=== PATIENT | male | born 1980 | race Caucasian/White ===

== ENCOUNTER 2020-10-04 16:17 | Emergency (ER) | payer SELFPAY ==
[2020-10-04 16:19] VITALS: BP 124/89; PULSE 82; RESP 18; TEMP 36.6; O2SAT 99; BMI 27.2
--- NOTE | 2020-10-04 17:04 | W.ED.ALCOHOL ---
HPI - Alcohol General: Chief Complaint: Alcohol Stated Complaint: ETOH Time Seen by Provider: 10/04/20 16:33 History of Present Illness: HPI narrative: 40 yo male present to the ER ambulaotry via EMS. he was found sleeping in a ditch. Admits to being intoxicated. Patient states he wants to stop drinking at some point in future. He denies any suicidal or homicidal ideation. He is not anxious to stop drinking at this time. He denies having any injuries and states he really does not want to be here. MD complaint: alcohol intoxication Physical Exam Const: COMMON NORMALS: no acute distress GENERAL APPEARANCE: cooperative and comfortable ORIENTATION/CONSCIOUSNESS: Yes awake, Yes oriented to person, Yes oriented to place and Yes oriented to time HENMT: COMMON NORMALS: normocephalic, atraumatic, hearing grossly normal bilaterally, external ears normal, EAC's normal, TM's normal bilaterally, Normal nasal mucous membranes and turbinates present, moist oral mucous membranes and oropharynx normal HEAD & SCALP: normocephalic and atraumatic NOSE: Normal nasal mucous membranes and turbinates present EXTERNAL EAR: Yes external ears normal EXTERNAL AUDITORY CANAL: EAC's normal TYMPANIC MEMBRANE: TM's normal bilaterally Neck/C-Spine: COMMON NORMALS: no JVD Resp: COMMON NORMALS: normal respiratory effort, No retractions, No use of accessory muscles and clear to auscultation bilaterally AUSCULTATION: clear to auscultation bilaterally Cardio: COMMON NORMALS: no JVD, regular rate, regular rhythm and No murmurs present (Cardio) RATE: regular rate RHYTHM: regular rhythm Extremity: COMMON NORMALS: normal to inspection, capillary refill normal, no clubbing, cyanosis or edema, no calf tenderness and no pedal edema Neuro: SENSORIUM/ORIENTATION: Yes oriented to person, Yes oriented to place and Yes oriented to time Course Vital Signs: Vital signs: Vital Signs Temperature 97.9 F 10/04/20 16:19 Pulse Rate 86 10/04/20 17:11 Respiratory Rate 16 10/04/20 17:11 Blood Pressure 107/70 10/04/20 17:11 Pulse Oximetry 97 10/04/20 17:11 MDM - Alcohol MDM Narrative: Medical decision making narrative: Ultimately patient declined exam and evaluation states he feels fine and would prefer to just leave. We will go ahead and discharge him encouraged alcohol abstinence and will referral to [facility]. Discharge Plan Discharge Patient Disposition: Home Clinical Impression: Alcoholic intoxication Condition: Stable Discharge Orders: Discharge ED (Routine); Ordered 10/04/20 Ordered By: Aden Owens Discharge Diet: Usual diet Discharge Activity: Increase activity as tolerated Activity Restrictions/Additional Instructions: REcommend abstinence form ETOH. Woudl reccomend you contact [facility] . Coding Level of Care Code ED Dress Marker for Kimberly Hopper
[2020-10-04 17:11] VITALS: BP 107/70; PULSE 86; RESP 16; O2SAT 97
== END 2020-10-04 17:12 | disposition home or self-care (01) ==
LOC: ER 17:12
PROVIDERS: Emergency Provider Family Medicine
DX: F10.129 Alcohol abuse with intoxication, unspecified (principal)
CPT/HCPCS: 12345; 99282

== ENCOUNTER 2020-10-04 21:00 | Inpatient (IN) | payer SELFPAY ==
[2020-10-04 21:05] VITALS: BP 138/94; PULSE 96; RESP 18; TEMP 36.6; O2SAT 97; BMI 27.9
[2020-10-04 21:38] LABS: Basophils # 0.1 10^3/uL (0.0-0.1); Basophils % 1.6 %; Eosinophils # 0.1 10^3/uL (0.0-0.8); Eosinophils % 1.4 %; Hematocrit 41.6 % (42.0-52.0); Hemoglobin 14.1 g/dL (11.7-16.6); Lymphocytes # 3.7 10^3/uL (0.8-4.8); Lymphocytes % 52.3 %; Mean Corpuscular HGB Conc 33.9 g/dL (30.0-36.0); Mean Corpuscular Hemoglobin 34.7 pg (28.0-34.0); Mean Corpuscular Volume 102.5 fL (80-94); Monocytes # 0.4 10^3/uL (0.2-0.9); Monocytes % 6.1 %; Neutrophils # 2.67 10^3/uL (1.8-7.7); Neutrophils % 38.2 %; Nucleated Red Blood Cells % 0 %; Platelet Count 251 10^3/cmm (130-400); Red Blood Count 4.06 10^6/uL (4.1-5.3); Red Cell Distribution Width 13.7 % (12.1-15.1)
[2020-10-04 21:55] LABS: Alanine Aminotransferase 55 U/L (0-41); Albumin Level 4.2 g/dL (3.5-5.2); Alcohol Level 277 mg/dL (0-10); Alkaline Phosphatase 115 IU/L (40-130); Anion Gap 16.7 (5-19); Aspartate Amino Transferase 88 U/L (0-40); Blood Urea Nitrogen 9 mg/dL (6-20); Calcium 8.8 mg/dL (8.5-10.5); Carbon Dioxide 26 mmol/L (22-29); Chloride 106 mmol/L (98-107); Globulin 2.6 g/dL (1.3-4.6); Glomerular Filtration Rate 186.1 mL/min (90-130); Glucose 157 mg/dL (65-115); Osmolality Calculated 302 mOsm/kg (285-295); Potassium 3.7 mmol/L (3.5-5.1); Sodium 145 mmol/L (136-145); Total Bilirubin 0.2 mg/dL (0.15-1.2); Total Protein 6.8 g/dL (6.6-8.7)
[2020-10-04 22:00] LABS: Salicylate < 0.3 mg/dL (3-10)
[2020-10-04 22:01] LABS: Acetaminophen < 5.0 ug/mL (10-30)
[2020-10-04 22:01] LABS: Add Urine Microscopic? NO
[2020-10-04 22:06] LABS: Bilirubin Urine Neg (Negative); Blood Urine Neg (Negative); Glucose Urine UA Norm (Normal); Ketones Urine Negative (Negative); Leukocyte Esterase Urine Negative (Negative); Nitrate Urine Negative (Negative); Protein Urine Neg (Negative); Urine Appearance Clear (CLEAR); Urine Color Yellow (Yellow); Urobilinogen Urine Norm (Negative); pH Urine 5 (5-7)
[2020-10-04 22:15] LABS: Amphetamines Screen Urine Negative (Negative); Barbiturates Screen Urine Negative (Negative); Benzodiazepines Screen Urine Negative (Negative); Cocaine Screen Urine Negative (Negative); Opiate Screen Urine Negative (Negative); PCP Screen Urine Negative (Negative); THC Screen Urine Negative (Negative)
[2020-10-04 22:31] VITALS: BP 139/95; PULSE 89; RESP 16; TEMP 37; O2SAT 98
--- NOTE | 2020-10-04 22:33 | W.ED.PSYCH ---
HPI - Psych General: Chief Complaint: Psychiatric Symptoms Stated Complaint: SI Time Seen by Provider: 10/04/20 21:01 Source: patient and EMS Mode of arrival: EMS Limitations: no limitations History of Present Illness: HPI Narrative: 40-year-old male who presents to the emergency department via EMS with complaint of suicidal ideation. He has apparently some social issues including no electricity or heat or water at home. He tried to get into the home long-term today but they did not do admissions on the weekend apparently. He is also an alcoholic who drinks vodka every day, he claims that he drinks at least a pint every day. Because he has nowhere to sleep and he was not able to get into a homeless long-term, a dog got to him and he felt overwhelmed. He therefore thought he may be better if he killed himself, Wants to hang himself or lay in a beach and . MD complaint: suicidal ideation and feels depressed Onset (ago): hour(s) Duration: constant Relieving factors: none Exacerbating factors: alcohol Context: recent alcohol abuse Associated psychiatric symptoms: depression and suicidal ideation Associated symptoms: Reports depression and suicidal ideation; Deny auditory hallucinations, visual hallucinations, delusions, homicidal ideation or racing thoughts Treatments prior to arrival: none If self harm: admits thoughts of self harm and has plan (hang himself) Review of Systems General: Reports: 10 or more systems reviewed and unremarkable except in HPI and below Const: Denies: fever(s), chills or body aches Eyes: Denies: change in vision or blurry vision ENMT: Denies: throat pain, enlarged tonsils, odynophagia, hoarseness, mouth pain or swelling of lips/tongue Card: Denies: palpitations, irregular heart rhythm, edema or swelling of feet/ankles Resp: Denies: dyspnea, productive cough or non-productive cough GI: Denies: abdominal pain, nausea or vomiting : Denies: flank pain, dysuria, urinary frequency, urinary urgency or urinary hesitancy Musc: Denies: neck pain, back pain or extremity swelling Skin/Breast: Denies: rash, pruritus or erythema Neuro: Denies: headache(s), numbness in extremities or weakness in extremities Psych: Reports: depression and suicidal ideation; Denies: visual hallucinations, auditory hallucinations or homicidal ideation Endo: Denies: polyuria, polydipsia or tired all the time Physical Exam Const: COMMON NORMALS: no acute distress, average body habitus, patient oriented x3, no limitations, healthy appearing, alert and well nourished HENMT: COMMON NORMALS: normocephalic, atraumatic and moist oral mucous membranes HEAD & SCALP: normocephalic and atraumatic Neck/C-Spine: COMMON NORMALS: no meningeal signs and no JVD Chest: COMMONS NORMALS: normal inspection of the chest and normal palpation of entire chest wall Resp: COMMON NORMALS: normal respiratory effort, No retractions, No use of accessory muscles, clear to auscultation bilaterally and percussion normal AUSCULTATION: clear to auscultation bilaterally PERCUSSION: percussion normal Cardio: COMMON NORMALS: no JVD, regular rate, regular rhythm, S1 normal heart sound present, S2 normal heart sound present, No gallops present (Cardio), No clicks present (Cardio), No murmurs present (Cardio), No rub (Cardio) and Peripheral pulses 2+ throughout RATE: regular rate RHYTHM: regular rhythm HEART SOUNDS: S1 normal heart sound present and S2 normal heart sound present PERIPHERAL PULSES: Peripheral pulses 2+ throughout GI: COMMON NORMALS: Normal to inspection, nondistended, normoactive bowel sounds present, Soft to palpation, non-tender, No hepatosplenomegaly present, no masses and no bruits PALPATION: Yes Soft to palpation and Yes No hepatosplenomegaly present Extremity: COMMON NORMALS: normal to inspection, full ROM, capillary refill normal, no calf tenderness and no pedal edema Neuro: COMMON NORMALS: patient oriented x3 SENSORIUM/ORIENTATION: Yes alert MENINGEAL SIGNS: Yes no meningeal signs Psych: THOUGHT CONTENT: No delusions Skin: COMMON NORMALS: no rashes or lesions noted, no wounds, turgor normal, no jaundice, no petechiae and no mottling GENERAL SKIN EXAM: no rashes or lesions noted and turgor normal MDM - Psych MDM Narrative: Medical decision making narrative: 40-year-old male with significant social issues who presents to the emergency department with suicidal ideation with a plan. He has been medically cleared and is admitted to the neuropsychiatric unit for further evaluation and management. He is also suffering from alcoholism. Medical Records: Attestation: I reviewed the patient's medical records. Lab Data: Attestation: I reviewed the patient's lab results. Labs: Lab Results 10/04/20 10/04/20 10/04/20 Range/Units 21:32 21:32 21:33 WBC 7.0 (4.0-10.0) 10^3/ uL RBC 4.06 L (4.1-5.3) 10^6/u L Hgb 14.1 (11.7-16.6) g/dL Hct 41.6 L (42.0-52.0) % MCV 102.5 H (80-94) fL MCH 34.7 H (28.0-34.0) pg MCHC 33.9 (30.0-36.0) g/dL RDW 13.7 (12.1-15.1) % Plt Count 251 (130-400) 10^3/c mm MPV 9.0 (7.4-10.4) fL Neut % (Auto) 38.2 % Lymph % (Auto) 52.3 % [place] % (Auto) 6.1 % Eos % (Auto) 1.4 % Baso % (Auto) 1.6 % Neut # (Auto) 2.67 (1.8-7.7) 10^3/u L Lymph # (Auto) 3.7 (0.8-4.8) 10^3/u L [place] # (Auto) 0.4 (0.2-0.9) 10^3/u L Eos # (Auto) 0.1 (0.0-0.8) 10^3/u L Baso # (Auto) 0.1 (0.0-0.1) 10^3/u L Nucleated RBC % (a uto) 0 % Nucleated RBCs # 0.0 /100WBC Sodium (136-145) mmol/L Potassium (3.5-5.1) mmol/L Chloride (98-107) mmol/L Carbon Dioxide (22-29) mmol/L Anion Gap (5-19) BUN (6-20) mg/dL Creatinine (0.7-1.2) mg/dL GFR Calculation (90-130) mL/min Glucose (65-115) mg/dL Calculated Osmolal ity (285-295) mOsm/k g Calcium (8.5-10.5) mg/dL Total Bilirubin (0.15-1.2) mg/dL AST (0-40) U/L ALT (0-41) U/L Alkaline Phosphata se (40-130) IU/L Total Protein (6.6-8.7) g/dL Albumin (3.5-5.2) g/dL Globulin (1.3-4.6) g/dL Urine Color Yellow (Yellow) Urine Appearance Clear (CLEAR) Urine pH 5 (5-7) Ur Specific Gravit y 1.020 (1.005-1.030) Urine Protein Neg (Negative) Urine Glucose (UA) Norm (Normal) Urine Ketones Negative (Negative) Urine Blood Neg (Negative) Urine Nitrate Negative (Negative) Urine Bilirubin Neg (Negative) Urine Urobilinogen Norm (Negative) mg/dL Ur Leukocyte Dior ase Negative (Negative) Salicylates (3-10) mg/dL Urine Opiates Scre en Negative (Negative) ng/mL Acetaminophen (10-30) ug/mL Ur Barbiturates Sc reen Negative (Negative) ng/mL Ur Phencyclidine S crn Negative (Negative) ng/mL Ur Amphetamines Sc reen Negative (Negative) ng/mL U Benzodiazepines Scrn Negative (Negative) ng/mL Urine Cocaine Scre en Negative (Negative) ng/mL U Marijuana (THC) Screen Negative (Negative) ng/mL Ethyl Alcohol (0-10) mg/dL 10/04/20 Range/Units 21:33 WBC (4.0-10.0) 10^3/ uL RBC (4.1-5.3) 10^6/u L Hgb (11.7-16.6) g/dL Hct (42.0-52.0) % MCV (80-94) fL MCH (28.0-34.0) pg MCHC (30.0-36.0) g/dL RDW (12.1-15.1) % Plt Count (130-400) 10^3/c mm MPV (7.4-10.4) fL Neut % (Auto) % Lymph % (Auto) % [place] % (Auto) % Eos % (Auto) % Baso % (Auto) % Neut # (Auto) (1.8-7.7) 10^3/u L Lymph # (Auto) (0.8-4.8) 10^3/u L [place] # (Auto) (0.2-0.9) 10^3/u L Eos # (Auto) (0.0-0.8) 10^3/u L Baso # (Auto) (0.0-0.1) 10^3/u L Nucleated RBC % (a uto) % Nucleated RBCs # /100WBC Sodium 145 (136-145) mmol/L Potassium 3.7 (3.5-5.1) mmol/L Chloride 106 (98-107) mmol/L Carbon Dioxide 26 (22-29) mmol/L Anion Gap 16.7 (5-19) BUN 9 (6-20) mg/dL Creatinine 0.5 L (0.7-1.2) mg/dL GFR Calculation 186.1 H (90-130) mL/min Glucose 157 H (65-115) mg/dL Calculated Osmolal ity 302 H (285-295) mOsm/k g Calcium 8.8 (8.5-10.5) mg/dL Total Bilirubin 0.2 (0.15-1.2) mg/dL AST 88 H (0-40) U/L ALT 55 H (0-41) U/L Alkaline Phosphata se 115 (40-130) IU/L Total Protein 6.8 (6.6-8.7) g/dL Albumin 4.2 (3.5-5.2) g/dL Globulin 2.6 (1.3-4.6) g/dL Urine Color (Yellow) Urine Appearance (CLEAR) Urine pH (5-7) Ur Specific Gravit y (1.005-1.030) Urine Protein (Negative) Urine Glucose (UA) (Normal) Urine Ketones (Negative) Urine Blood (Negative) Urine Nitrate (Negative) Urine Bilirubin (Negative) Urine Urobilinogen (Negative) mg/dL Ur Leukocyte Dior ase (Negative) Salicylates < 0.3 L (3-10) mg/dL Urine Opiates Scre en (Negative) ng/mL Acetaminophen < 5.0 L (10-30) ug/mL Ur Barbiturates Sc reen (Negative) ng/mL Ur Phencyclidine S crn (Negative) ng/mL Ur Amphetamines Sc reen (Negative) ng/mL U Benzodiazepines Scrn (Negative) ng/mL Urine Cocaine Scre en (Negative) ng/mL U Marijuana (THC) Screen (Negative) ng/mL Ethyl Alcohol 277 H (0-10) mg/dL Discharge Plan Discharge Patient Disposition: Admitted As Inpatient Admit Provider: Yemi Agee Clinical Impression: Suicidal ideation, Alcohol abuse with alcohol-induced mental disorder Condition: Stable Coding Level of Care Code ED [employer] Loose End Finder for Kimberly Hopper Exam Problem Focused
[2020-10-04 22:55] VITALS: RESP 16
--- NOTE | 2020-10-05 00:13 | PC.NURSE ---
PM Assessment 40-year-old male who presents to the emergency department via EMS with complaint of suicidal ideation. He has apparently some social issues including no electricity or heat or water at home. He tried to get into the homeless fpc today but they did not do admissions on the weekend apparently. He is also an alcoholic who drinks vodka every day, he claims that he drinks at least a pint every day. Because he has nowhere to sleep and he came to the hospital for help. Pt Bal is 277 on admission to the unit. Pt is fully functional at this level. Pt denies SI/HI and denies AH/VH. Pt states he does have depression but it is due to his current living situation. Pt states he has had legal trouble related to his alcohol use. He was arrested for disturbing the peace and just left longterm on Wednesday This patient is smiling and watching television
--- NOTE | 2020-10-05 00:38 | PC.NURSE ---
CIWA 0
[2020-10-05 06:00] VITALS: BP 122/79; PULSE 75; RESP 18; TEMP 37.1; O2SAT 95
--- NOTE | 2020-10-05 08:08 | PC.NURSE ---
refused scheduled thiamine, folic acid, multivitamin
--- NOTE | 2020-10-05 10:09 | P.HP_ITS ---
Providers/Chief Complaint Admitting Physician: Yemi Agee DO Chief Complaint: SI HPI NPU History of Present Illness Davidson Kolb is a 40 year old male with no past psychiatric history initially presented to the emergency department with alcohol intoxication and reportedly no interest in stopping the use of alcohol but subsequently arrived by ambulance a few hours later endorsing suicidal ideation in the context of multiple stressors to include no heat or electricity in his trailer as well as other life stressors. Patient currently denying any suicidal ideation but reports some depressive symptoms in the context of his ongoing life stress as well as daily alcohol use. Patient states that he drinks approximately a pint of vodka a day to help with sleep and reports daily alcohol use for several years and does not recall any. Of sobriety longer than a day for the past 11 years since he started drinking. He denies any current withdrawal symptoms and denies any past history of complicated alcohol withdrawal. Patient currently reports interest in seeking treatment for alcohol post discharge. Per above, patient reports ongoing life stress with intermittent anxiety and depressive symptoms related to his ongoing stressors. Patient has difficulty relating any sustained periods of low mood states outside of his alcohol use in the last 11 years but does report some intermittent depressive symptoms prior to his use of alcohol. He denies any psychiatric hospitalizations or psychiatric treatment related to anxiety or depressive symptoms and denies any history of suicide attempt or self-harm behavior. Psychiatric review of systems is otherwise negative. Patient reports some support from his parents, who allow him to stay in a trailer although the trailer currently does not have any heat or electricity. Reports that his parents occasionally help him with food. 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 Patient is agreeable to medically manage withdrawal from alcohol as well as coordination for post discharge treatment for his alcohol use. Review of Systems General: Reports: 10 or more systems reviewed and unremarkable except in HPI and below Meds NPU Home Medications Medication Instructions Recorded Confirmed Last Taken Type No Known Home Medications 10/04/20 10/04/20 Unknown History Allergies Allergy/AdvReac Type Severity Reaction Status Date / Time No Known Allergies Allergy Verified 10/04/20 21:07 [facility] NPU Other Psychiatric History: Other Psychiatric History: Per above, denies any treatment in the past by a psychiatrist or primary care for depressive or anxiety symptoms Denies any history of psychiatric hospitalizations Denies any history of suicide attempts or self-harm behavior Mental Status Exam MSE Comments: Appears stated age, tired appearing, appropriately dressed, barefooted, unshaven, wearing glasses, calm, cooperative, interactive, good eye contact Psychomotor activity is somewhat decreased, no agitation Speech is low volume, spontaneous, normal rate, not pressured I am okay, constricted affect, not labile Alert and oriented to person, place, time, situation Memory and concentration appear to be fair per interview Intellectual functioning appears to be below average to average at best based on vocabulary, interview Thought process, linear but brief, no flight of ideas, no looseness of associations Thought content, no delusions, no hallucinations, no suicidal or homicidal id eation Insight and judgment appear to be fair Vitals/I&O/Wt Last Vital Signs Temp 98.8 F 10/05/20 06:00 Pulse 75 10/05/20 06:00 Resp 18 10/05/20 06:00 BP 122/79 10/05/20 06:00 Pulse Ox 95 10/05/20 06:00 Weight last 48 hrs Weight 88.451 kg Data NPU : 10/04/20 21:33 10/04/20 21:33 A&P Assessment and plan (1) Suicidal ideation: Status: Acute (2) Alcohol dependence with withdrawal: Status: Acute Additional A&P Information Patient with no past psychiatric history with daily alcohol use of a pint today presented with suicidal ideation and ongoing depressive symptoms in the context of multiple stressors requesting medically managed withdrawal from alcohol. Patient currently denying any suicidal ideation but reports intermittent mood s ymptoms. Patient is homeless with multiple stressors which exacerbate his ongoing mood symptoms and alcohol use. Patient is interested in post discharge treatment for his alcohol use. VOLUNTARY ADMIT to inpatient psychiatry CONTINUE CIWA protocol CONTINUE to monitor and evaluate for need for psychotropic medication targeting depressive symptoms Encourage patient participate in unit activities to include group sessions and unit milieu Involuntary Hold Information 96 Hour Hold: 96 Hour Involuntary Admission: No Attestations NPU Medical Necessity Statement*: Patient requires psychiatric hospitalization for medically managed withdrawal from alcohol as well as coordination for safe discharge to post discharge treatment Anticipate hospital stay to exceed 2 midnights Time Spent in Patient Care: Greater than 35 minutes (>than 50% of time spent in counselling and/or direct pt care on unit) . Coding Level of Care Code Acute Manager Of Manufacturing for [employer] Fwd Diagnoses Suicidal ideation R45.851 Alcohol dependence with withdrawal F10.239
[2020-10-05 14:00] VITALS: BP 153/97; PULSE 82; RESP 18; TEMP 36.2; O2SAT 97
[2020-10-05] MEDS: nicotine 2 mg Gum BUCCAL (17:49)
[2020-10-05] MEDS: hyDROXYzine 25 mg Capsule 50 MG PO (19:50)
--- NOTE | 2020-10-05 19:52 | PC.NURSE ---
PRN Visteril Pt stated that he is anxious. Pacing up and down the hallway. Given 50mg Visteril PO to lessen anxiety. Will continue to monitor patient condition.
--- NOTE | 2020-10-05 20:37 | PC.NURSE ---
PM assessment Pt is calm and cooperative with staff. Pt denies SI/HI, Denies AH/VH, pt reports anxiety and need for medication. Med Nurse notified, pt received Visteril 50mg PO, pt seems less anxious since receiving medication, he continues to walk up and down the hallway, he seems bored. Offered a book to read and pt accepted but has not began to read it. Pt asked for medication to help him sleep this evening. Med nurse notified. Heart sounds are normal, Lung sounds clear in all lobes, however, Pt has had elevated blood pressure readings since yesterday (MT 115 & BP 153/97) and this evening it is elevated (MT 90 & BP 162/109). Will continue to monitor patient for improvement of anxiety, sleep onset this evening, and blood pressures this evening.
--- NOTE | 2020-10-05 20:46 | PC.NURSE ---
Visteril Follow up Pt reports feeling less anxious. He is bored and continues to walk the hallway during commercial breaks in the dayroom. Pt is smiling and interacts with staff. Mood seems improved. Medication is effective without sedative effect on pt.
[2020-10-05 21:04] VITALS: BP 162/109; PULSE 90; RESP 17; TEMP 36.7; O2SAT 97
[2020-10-05] MEDS: trazodone 50 mg Tablet PO (21:45)
[2020-10-06 05:35] VITALS: BP 117/68; PULSE 70; RESP 16; TEMP 37.2; O2SAT 97
[2020-10-06 05:36] VITALS: BMI 27.9
--- NOTE | 2020-10-06 06:08 | PC.NURSE ---
Behavior Pt slept all night. Since v/s were taken this morning, pt has been awake and been at the dayroom snacking since. Pt is easy to talk to, calm, and cooperative with staff.
[2020-10-06] MEDS: folic acid 1 mg Tablet PO (10:02)
[2020-10-06] MEDS: thiamine 100 mg Tablet PO (10:02)
[2020-10-06] MEDS: multivitamin therapeutic Tablet 1 TAB PO (10:02)
--- NOTE | 2020-10-06 10:04 | P.DS_ITS ---
Diagnoses at Discharge Discharge Diagnosis (1) Suicidal ideation: Status: Acute (2) Alcohol dependence with withdrawal: Status: Acute Reason for Visit Reason for Visit: SI Hospital Course Hospital Course 40 year old male with no past psychiatric history initially presented to the emergency department with alcohol intoxication and reportedly no interest in stopping the use of alcohol but subsequently arrived by ambulance a few hours later endorsing suicidal ideation in the context of multiple stressors to include no heat or electricity in his trailer as well as other life stressors. He denied any suicidal ideation at the time of initial evaluation but reported ongoing stressors causing transient mood symptoms. He denied any alcohol withdrawal symptoms. Patient participated in unit milieu with no reports of any behavioral disturbances. Patient was not suicidal at the time of discharge and did not appear to pose an imminent threat of harm to self or others. Low risk of harm to self given no current suicidal ideation and no history of suicide attempts or self-harm behavior and no active psychiatric symptoms. Risk mitigation included psychiatric hospitalization for observation and evaluation for need of medication stabilization as well as recommendation to abstain from the use of alcohol. Patient was able to communicate his understanding of the need to abstain from the use of alcohol as well as the need for mental health and substance follow-up post discharge to mitigate his risk of harm to self. Involuntary Hold Information 96 Hour Hold: 96 Hour Involuntary Admission: No Mental Status Exam MSE Comments: Sitting in day room, appropriately groomed and dressed, calm, cooperative, interactive, good eye contact Psychomotor activity is somewhat decreased, no agitation Speech is low volume, spontaneous, normal rate, not pressured Pretty good, constricted affect, not labile Alert and oriented to person, place, time, situation Memory and concentration appear to be fair per interview Intellectual functioning appears to be below average to average at best based on vocabulary, interview Thought process, linear but brief, no flight of ideas, no looseness of associations Thought content, no delusions, no hallucinations, no suicidal or homicidal ideation Insight and judgment appear to be fair Discharge Data Vitals: Last Vital Signs Temp 98.9 F 10/06/20 05:35 Pulse 70 10/06/20 05:35 Resp 16 10/06/20 05:35 BP 117/68 10/06/20 05:35 Pulse Ox 97 10/06/20 05:35 Discharge Plan Discharge Patient Disposition: Home Condition: Stable Prescriptions: No Action No Known Home Medications RF: 0 Discharge Orders: Discharge Order (Routine); Ordered 10/06/20 Ordered By: Yemi Agee Discharge Diet: Regular Discharge Activity: Resume usual activity Discharge Attestations NPU Time Spent in Discharge Care*: less than 30 min Coding Level of Care Code Acute Flood Control Engineer for [facility] Fwd Diagnoses Suicidal ideation R45.851 Alcohol dependence with withdrawal F10.239
[2020-10-06 10:12] VITALS: BP 117/68; PULSE 70; RESP 16; TEMP 37.2; O2SAT 97
== END 2020-10-06 10:37 | disposition home or self-care (01) | DRG 897 ==
LOC: ER 21:03 → NP 22:52
PROVIDERS: Admitting Provider Psychiatry & Neurology Psychiatry; Emergency Provider Family Medicine; Visit Provider Psychiatry & Neurology Psychiatry
DX: F10.229 Alcohol dependence with intoxication, unspecified (principal); R45.851 Suicidal ideations; F10.239 Alcohol dependence with withdrawal, unspecified; Y90.8 Blood alcohol level of 240 mg/100 ml or more
CPT/HCPCS: 12345; 80053; 80306; 80307; 81003; 85025; 99284